=== PATIENT | male | born 1955 | race Caucasian/White ===

== ENCOUNTER 2018-08-28 06:09 | Day surgery (SDC) | payer BC ==
[2018-08-27 09:59] VITALS: BMI 30.1
[2018-08-28] MEDS ORDERED: Sodium Chloride 0.9% 10 ML ONE (06:26)
[2018-08-28] MEDS ORDERED: Thrombin 5000 UNITS/5 ML VIAL ONE (06:26)
[2018-08-28] MEDS ORDERED: CEFAZOLIN 2 GM/50 ML BAG ONE (06:31)
[2018-08-28] MEDS ORDERED: Fentanyl 250 MCG/5 ML VIAL ONE (06:39)
--- NOTE | 2018-08-28 08:53 | OP ---
DATE OF PROCEDURE: 08/28/2018 LICENSING SPECIALIST: Dimas Maher PA-C PROCEDURES PERFORMED: Anterior cervical diskectomy, C5-C6 and C6-C7, interbody arthrodesis, intervertebral biomechanical device, local morselized autograft, demineralized bone matrix, anterior titanium instrumentation, C5-C6 and C6-C7. DESCRIPTION OF PROCEDURE: The patient was brought to the operating room and intubated. He was positioned supine with the head in modest extension on a gel-filled donut. An incision was made in the right precervical region and dissected medial to the sternocleidomastoid muscle, identified the anterior cervical spinal, and the level was confirmed by x-ray. We debrided the anterior osteophytes, placed distraction across the disk spaces and using the operative microscope and microdissection techniques, completely removed the intervertebral disks at C5-C6 and C6-C7 down to the level of the dura with particular attention to the left. The bony endplates were then decorticated for the purpose of arthrodesis and appropriate-sized intervertebral biomechanical PEEK device was brought into the field and filled with demineralized bone matrix and local morselized autograft, and tapped in place securely at C5-C6 and C6-C7. Next, an anterior plate was brought into the field and secured to C5, C6, and C7 using two 14-mm screws at each level. The wound was then extensively irrigated and maximum hemostasis was secured and the wound was closed in anatomic layers. Job ID: [id number]
[2018-08-28] MEDS ORDERED: Fentanyl 100 MCG/2 ML VIAL ONE (09:12)
[2018-08-28] MEDS ORDERED: Glycopyrrolate 0.2 MG/ML 5 ML SYRINGE ONE (16:26)
[2018-08-28] MEDS ORDERED: Ondansetron PF 4 MG/2 ML Vial ONE (16:26)
[2018-08-28] MEDS ORDERED: PROPOFOL 200 MG/20 ML VIAL ONE (16:26)
[2018-08-28] MEDS ORDERED: Dexamethasone 20 MG/5 ML VIAL ONE (16:26)
[2018-08-28] MEDS ORDERED: PHENYLEPHRINE-NS 100 MCG/ML 10 ML SYRINGE ONE (16:26)
[2018-08-28] MEDS ORDERED: Hydrocortisone Sod Succ/PF 100 mg/2 ml Vial ONE (16:26)
[2018-08-28] MEDS ORDERED: Rocuronium Bromide 10 MG/ML (10ML VIAL) ONE (16:26)
== END 2018-08-28 13:10 | disposition home or self-care (01) ==
LOC: SDC 06:09
PROVIDERS: ATTEND Neurological Surgery
PROC: 0RT30ZZ Resection of Cervical Vertebral Disc, Open Approach (ICD-10-PCS; principal; 2018-08-28)
PROC: 0RG20K0 Fusion of 2 or more Cervical Vertebral Joints with Nonautologous Tissue Substitute, Anterior Approach, Anterior Column, Open Approach (ICD-10-PCS; principal; 2018-08-28)
PROC: 0RG20A0 Fusion of 2 or more Cervical Vertebral Joints with Interbody Fusion Device, Anterior Approach, Anterior Column, Open Approach (ICD-10-PCS; principal; 2018-08-28)
PROC: 0RG2070 Fusion of 2 or more Cervical Vertebral Joints with Autologous Tissue Substitute, Anterior Approach, Anterior Column, Open Approach (ICD-10-PCS; principal; 2018-08-28)
DX: M50.122 Cervical disc disorder at C5-C6 level with radiculopathy (principal); M48.02 Spinal stenosis, cervical region; M25.78 Osteophyte, vertebrae; Z79.1 Long term (current) use of non-steroidal anti-inflammatories (NSAID); Z79.82 Long term (current) use of aspirin; Z79.899 Other long term (current) drug therapy; Z88.2 Allergy status to sulfonamides; Z96.652 Presence of left artificial knee joint
CPT/HCPCS: 76000; C1713; C1776; J1100; J1720; J2405; J2704; J3010; J3490

== ENCOUNTER 2018-09-11 10:10 | Outpatient (CLI) | payer BC ==
--- NOTE | 2018-09-11 11:46 | RAD ---
CERVICAL SPINE THREE VIEWS: History: M54.2, neck pain, follow up surgery. Comparison: 04-21-18 FINDINGS: Anterior cervical fusion changes at C5, C6 and C7. There is some prevertebral soft tissue swelling at this level, new when compared to the prior study. No significant malalignment. Generalized cervical spondylosis. IMPRESSION: Anterior cervical fusion changes at C5, C6, and C7 with some adjacent prevertebral soft tissue swelli ng. POS: [facility]
== END 2018-09-11 10:11 | disposition home or self-care (01) ==
LOC: TBSIIMAG 10:10
PROVIDERS: ATTEND Neurological Surgery
DX: M54.2 Cervicalgia (principal); M79.89 Other specified soft tissue disorders; Z98.1 Arthrodesis status
CPT/HCPCS: 72040

== ENCOUNTER 2018-11-13 12:47 | Outpatient (CLI) | payer BC ==
--- NOTE | 2018-11-13 13:05 | RAD ---
Cervical spine 2 views 11/13/2018 COMPARISON: 09/11/2018 HISTORY: Cervical radiculopathy FINDINGS: Anterior discectomy and fusion hardware present at C5-6/C6-7. Mild prevertebral soft tissue swelling seen in this region, improved when compared to the prior exam. No significant anterolisthesis or retrolisthesis. No evidence for hardware failure. Multilevel mid cervical spine fa cet and uncovertebral osteophyte formation noted, left greater than right. IMPRESSION: Postoperative and degenerative changes as detailed above. No acute findings are seen.
== END 2018-11-13 12:48 | disposition home or self-care (01) ==
LOC: TBSIIMAG 12:47
PROVIDERS: ATTEND Neurological Surgery
DX: M47.22 Other spondylosis with radiculopathy, cervical region (principal); Z98.1 Arthrodesis status
CPT/HCPCS: 72040

== ENCOUNTER 2019-04-09 09:10 | Outpatient (CLI) | payer MEDICARE, BC ==
[2019-04-09 10:47] LABS: Bacteria/HPF None Seen HPF (None Seen); Bilirubin Negative (Negative); Blood, Urine Negative (Negative); Clarity Clear (Clear); Glucose, Urine (Dipstick) Normal (Negative); Leukocyte Negative Leu/uL (Negative); Nitrite Negative (Negative); Protein, Urine (Dipstick) Negative (Neg-Trace); RBC/HPF 0-3 HPF (0-3); Squamous Epithelial None Seen HPF (0-3); Urobilinogen Normal mg/dL (Less than 2); WBC/HPF 0-3 HPF (0-3)
[2019-04-09 10:48] LABS: PTT 28.9 SEC (22.9-36.1); Prothrombin Time 12.7 SEC (12.0-14.7)
[2019-04-09 10:54] LABS: Hemoglobin 15.3 g/dL (14.0-18.0); Mean Corpuscular HGB CONC 34.4 g/dL (32.0-36.0); Mean Corpuscular Hemoglobin 30.5 pg (27.0-31.0); Mean Corpuscular Volume 88.7 fL (78.0-98.0); Mean Platelet Volume 8.4 fL (7.4-10.4); Platelet Count 225 thou/uL (130-400); RBC Distribution Width 12.3 % (11.5-14.5); White Blood Cell (WBC) Count 7.4 thou/uL (4.8-10.8)
[2019-04-09 11:08] LABS: Anion Gap 13 mmol/L (10-20); BUN (Urea Nitrogen) 14 mg/dL (8.4-25.7); Calc. Creatinine Clearance 0 mL/min (70-130); Calcium 9.7 mg/dL (7.8-10.44); Carbon Dioxide 29 mmol/L (23-31); Chloride 101 mmol/L (98-107); Estimated GFR-MDRD 73; Glucose 104 mg/dL (80-115); Potassium 4.9 mmol/L (3.5-5.1); Sodium 138 mmol/L (136-145)
--- NOTE | 2019-04-10 11:03 | EKG ---
Test Reason : Blood Pressure : / mmHG Vent. Rate : 064 BPM Atrial Rate : 064 BPM P-R Int : 198 ms QRS Dur : 100 ms QT Int : 406 ms P-R-T Axes : 050 086 043 degrees QTc Int : 418 ms Normal sinus rhythm Normal ECG Confirmed by KIRTI WHITTAKER ([id number]) on 04/10/2019 11:02:37 AM Referred By: MARYANN Confirmed By:KIRTI WHITTAKER
== END 2019-04-09 09:11 | disposition home or self-care (01) ==
LOC: LABBT 09:10
PROVIDERS: ATTEND Urology
DX: Z01.818 Encounter for other preprocedural examination (principal); R33.9 Retention of urine, unspecified; N40.0 Benign prostatic hyperplasia without lower urinary tract symptoms
CPT/HCPCS: 80048; 81001; 85027; 85610; 85730; 87086; 93005; 93010

== ENCOUNTER 2019-04-22 07:30 | Day surgery (SDC) | payer MEDICARE, BC ==
[2019-04-09 09:34] VITALS: BMI 29.8
[2019-04-22] MEDS ORDERED: Levofloxacin 500 mg/D5W 100 ml Premix Bag ONE (08:12)
[2019-04-22] MEDS ORDERED: Propofol 500 MG/50 ML VIAL ONE (09:49)
[2019-04-22] MEDS ORDERED: Fentanyl 100 MCG/2 ML VIAL ONE ×2 (09:49)
[2019-04-22] MEDS ORDERED: Midazolam HCl 2 mg/2 ml Vial ONE ×2 (09:49)
[2019-04-22] MEDS ORDERED: Phenazopyridine HCl 97.5 MG TABLET ONE ×2 (11:15→11:18)
--- NOTE | 2019-04-22 11:57 | OP ---
DATE OF PROCEDURE: 04/22/2019 PRIMARY CARE PHYSICIAN: Dr. Apple Apodaca. PREOPERATIVE DIAGNOSES: 1. A 64-year-old male with history of benign prostatic hypertrophy. 2. 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 POSTOPERATIVE DIAGNOSES: 1. A 64-year-old male with history of benign prostatic hypertrophy. 2. 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 PROCEDURES PERFORMED: 1. Cystoscopy. 2. Meatal calibration and dilatation. 3. Dilation of urethral stricture. 4. UroLift implant x6. ANESTHESIA: TIVA. COMPLICATIONS: None apparent. DISPOSITION: To recovery room in stable condition. INDICATIONS FOR PROCEDURE AND HISTORY: Mr. Rosas is a pleasant 64-year-old male with history of BPH, history of elevated PSA, biopsy negative for malignancy. He is on dual medical therapy and desires to proceed with surgical intervention for BPH. The patient prefers UroLift due to minimally invasive approach. Risks and complications of the procedure were reviewed with him in detail including, but not limited to, bleeding, pain, infection, incontinence, UTI, generalized pelvic pain, injury to adjacent organs, possible exposure, migration of implant resulting in incrustation, urolithiasis warranting treatment. All questions were answered to his satisfaction and desired to proceed. DESCRIPTION OF PROCEDURE: After an informed consent was signed, the patient taken to the operating room and placed in a dorsal lithotomy position with the genital area prepped and draped in the usual surgical sterile fashion. A 21-Citizen [place] cystoscope was utilized for cystoscopy. There was some resistance at the meatus , fossa. Therefore, we gently calibrated the urethral meatus to 16/18-Citizen [place], dilated to 24-[place]izen [place] with ease, and subsequently, the scope was able to be passed without significant issues. The urethra was staged again, demonstrating multiple early proximal penile bulbar stricture, wide caliber, not warranting treatment and scope was easily maneuvered proximal to this. At the level of bulbar urethra, there was a stricture about 16-[place]izen [place] caliber. With the passage of scope, this resolved. The prostatic urethra was staged, demonstrating [id number] hyperplasia of the prostate, obstructing. Bladder was entered. The UOs were about 4 mm proximal to the bladder neck and had trabeculation consistent with chronic outlet obstruction. At this time, we transitioned to a 0-degree 20-[place]izen [place] UroLift scope and re- staged the urethra. Total of 6 implants were placed. The first implant was treated on the left side 1.5 cm distal to the bladder neck. Most of his obstructing component was lateral, his anterior channel was not obviously obstructing. We did sequentially place 6 implants of his lateral lobes, opening up a nice anterior channel. There was apical hyperplasia; however, this was nonobstructing as we created a nice open channel to the bladder anteriorly. Minimal oozing and bleeding was noted. I was able to subsequently pass a 16-Citizen [place] in and out catheter with ease. As his meatal calibration was done atraumatically, I did not leave an indwelling urethral Hathaway catheter in. We will watch the patient postoperatively for a voiding trial. If no significant retention or hematuria of concern, we will discharge the patient without an indwelling Hathaway catheter. He will follow up with me in about 4 weeks on for peak flow PVR. He is discharged on ciprofloxacin for course of 5 days, Azo p.r.n. for dysuria. The patient is to stop all aspirin and ibuprofen products at least for 10 days, and is advised to continue his Flomax and Avodart until followup appointment with me next month. Job ID: [id number] [facility]
== END 2019-04-22 13:35 | disposition home or self-care (01) ==
LOC: SDC 07:30
PROVIDERS: ATTEND Urology
PROC: 0T7D8DZ Dilation of Urethra with Intraluminal Device, Via Natural or Artificial Opening Endoscopic (ICD-10-PCS; principal; 2019-04-22)
DX: N40.1 Benign prostatic hyperplasia with lower urinary tract symptoms (principal); R35.0 Frequency of micturition; R39.14 Feeling of incomplete bladder emptying; N35.912 Unspecified bulbous urethral stricture, male; I10 Essential (primary) hypertension; E78.5 Hyperlipidemia, unspecified; M06.9 Rheumatoid arthritis, unspecified; N52.9 Male erectile dysfunction, unspecified; Z79.82 Long term (current) use of aspirin; Z79.899 Other long term (current) drug therapy; Z88.2 Allergy status to sulfonamides
CPT/HCPCS: C1889; C9740; J1956; J2250; J2704; J3010

== ENCOUNTER 2022-09-28 09:15 | Inpatient (IN) | payer MEDICARE, BC ==
[2022-09-28 10:22] LABS: Hemoglobin 14.4 g/dL (13.5-17.5); Mean Corpuscular HGB CONC 33.6 g/dL (32.0-36.0); Mean Corpuscular Volume 86.5 fl (81.2-95.1); Mean Platelet Volume 10.9 fl (7.4-10.4); Platelet Count 267 10x3/uL (150-450); RBC Distribution Width 13.1 % (11.5-14.5); Red Blood Cell (RBC) Count 4.96 10x6/uL (4.32-5.72); White Blood Cell (WBC) Count 9.2 10x3/uL (3.5-10.5)
[2022-09-28 10:50] LABS: Anion Gap 14 mmol/L (10-20); BUN (Urea Nitrogen) 30 mg/dL (8.4-25.7); Calc. Creatinine Clearance 0 mL/min (70-130); Calcium 9.4 mg/dL (7.8-10.44); Carbon Dioxide 27 mmol/L (23-31); Chloride 104 mmol/L (98-107); Estimated GFR 64; Glucose 86 mg/dL (80-115); Sodium 141 mmol/L (136-145)
[2022-10-01] MEDS ORDERED: Albumin 5% 500 ML ONE (06:21)
[2022-10-01] MEDS ORDERED: Lidocaine 1% MPF 2 ML VIAL ONE (06:30)
[2022-10-01] MEDS ORDERED: Midazolam HCl 5 mg/5 ml Vial ONE (06:44)
[2022-10-01] MEDS ORDERED: Fentanyl 250 MCG/5 ML VIAL ONE (06:44)
[2022-10-01] MEDS ORDERED: Dexmedetomidine 200 MCG/2 ML VIAL ONE (06:50)
[2022-10-01] MEDS ORDERED: Sodium Chloride 0.9% 100 ML ONE (07:14)
[2022-10-01] MEDS ORDERED: CEFAZOLIN 2 GM VIAL ONE (07:14)
[2022-10-01] MEDS ORDERED: Heparin 10,000 UNITS/1 ML VIAL 30,000 UNITS in Sodium Chloride 0.9% 1,000 ML FS SCH (07:15)
[2022-10-01 07:51] LABS: SARS-CoV-2 NAA Rapid Test Not Detected (NotDetected)
[2022-10-01] MEDS ORDERED: Dexamethasone 20 MG/5 ML VIAL ONE (07:56)
[2022-10-01] MEDS ORDERED: Papaverine 60 MG/2 ML VIAL ONE (07:56)
[2022-10-01] MEDS ORDERED: Sodium Bicarb 50 MEQ/50 ML Abboject 8.4% SYRINGE ONE (07:56)
[2022-10-01] MEDS ORDERED: Protamine Sulfate 50 MG/5 ML VIAL ONE (07:56)
[2022-10-01] MEDS ORDERED: Glycopyrrolate 0.2 MG/ML 5 ML SYRINGE ONE (07:56)
[2022-10-01] MEDS ORDERED: Heparin 30,000 units/30 ml VIAL ONE (07:56)
[2022-10-01] MEDS ORDERED: Aminocaproic Acid 5 GM/20 ML VIAL ONE (07:56)
[2022-10-01] MEDS ORDERED: Potassium Chloride 60 MEQ/30 ML VIAL ONE (07:56)
[2022-10-01] MEDS ORDERED: Calcium Chloride 1 GM/10 ML Abboject SYRINGE ONE (07:56)
[2022-10-01] MEDS ORDERED: Vecuronium 10 MG VIAL ONE (07:56)
[2022-10-01] MEDS ORDERED: Lidocaine 1% PF 5 ML VIAL ONE (07:56)
[2022-10-01] MEDS ORDERED: PROPOFOL 200 MG/20 ML VIAL ONE (07:56)
[2022-10-01] MEDS ORDERED: Norepinephrine 4 MG/4 ML VIAL ONE (07:56)
[2022-10-01] MEDS ORDERED: Ondansetron PF 4 MG/2 ML Vial ONE (07:56)
[2022-10-01] MEDS ORDERED: Thrombin 5000 UNITS/5 ML VIAL ONE (07:56)
[2022-10-01] MEDS ORDERED: Mannitol 12.5 GM/50 ML ONE (07:56)
[2022-10-01] MEDS ORDERED: NEOSTIGMINE 3 MG/3 ML SYR 3 MG/3 ML SYRINGE ONE (07:56)
[2022-10-01] MEDS ORDERED: Lidocaine 2% PF 100 mg/5 ml Syringe ONE (07:56)
[2022-10-01] MEDS ORDERED: Magnesium 5 GM/10 ML VIAL ONE (07:56)
[2022-10-01] MEDS ORDERED: Heparin 5,000 UNITS/ML VIAL ONE (07:56)
[2022-10-01] MEDS ORDERED: Vancomycin 1 GM VIAL ONE (07:56)
[2022-10-01] MEDS ORDERED: Potassium Chloride 20 MEQ/100 ML PREMIX BAG IVPB PRN (11:01)
[2022-10-01] MEDS ORDERED: Mag-Al 1200 mg/1200 mg/30 ML UDCUP PO PRN (11:01)
[2022-10-01] MEDS ORDERED: Bisacodyl 10 MG SUPP PR PRN (11:01)
[2022-10-01] MEDS ORDERED: Ondansetron PF 4 MG/2 ML Vial IVP PRN (11:01)
[2022-10-01] MEDS ORDERED: NOREPINEPHRINE 8 MG/250 ML-D5W 250 ML IVPB PRN (11:01)
[2022-10-01] MEDS ORDERED: niCARdipine 25 MG in Sodium Chloride 0.9% 250 ML 250 ML IVPB PRN (11:01)
[2022-10-01] MEDS ORDERED: Hetastarch 6% 500 ML 500 ML IVPB PRN (11:01)
[2022-10-01] MEDS ORDERED: Ipratropium/Albuterol 3 ML NEB NEB PRN (11:01)
[2022-10-01] MEDS ORDERED: Acetaminophen 325 MG TAB PO PRN (11:01)
[2022-10-01] MEDS ORDERED: hydrALAZINE 20 MG/ML VIAL SLOW IVP PRN (11:01)
[2022-10-01] MEDS ORDERED: Morphine 2 MG/ML VIAL SLOW IVP PRN (11:01)
[2022-10-01 11:18] LABS: #Eosinphils 0.2 thou/uL (0.0-0.7); #Lymphocytes 1.9 thou/uL (1.20-3.40); #Monocytes 0.7 thou/uL (0.11-0.59); #Neutrophils 16.3 thou/uL (1.40-6.50); %Basophils 0.2 % (0.0-1.0); %Eosinophils 1.2 % (0.0-10.0); %Lymphocytes 9.9 % (21.0-51.0); %Monocytes 3.5 % (0.0-10.0); %Neutrophils 85.3 % (42.0-75.0); Hemoglobin 13.2 g/dL (14.0-18.0); Mean Corpuscular HGB CONC 32.8 g/dL (32.0-36.0); Mean Corpuscular Hemoglobin 30.2 pg (27.0-31.0); Mean Corpuscular Volume 92.1 fl (78.0-98.0); Mean Platelet Volume 8.3 fL (7.4-10.4); Platelet Count 178 10x3/uL (130-400); RBC Distribution Width 11.9 % (11.5-14.5); Red Blood Cell (RBC) Count 4.35 mill/uL (4.70-6.10); White Blood Cell (WBC) Count 19.1 10x3/uL (4.8-10.8)
[2022-10-01 11:29] LABS: Anion Gap 9 mmol/L (10-20); BUN (Urea Nitrogen) 27 mg/dL (8.4-25.7); Calc. Creatinine Clearance 106 mL/min (70-130); Carbon Dioxide 23 mmol/L (23-31); Chloride 110 mmol/L (98-107); Estimated GFR 80; Glucose 143 mg/dL (80-115); Potassium 4.4 mmol/L (3.5-5.1); Sodium 138 mmol/L (136-145)
[2022-10-01] MEDS: Lactated Ringer's 1,000 ML IV SCH (11:49)
[2022-10-01 12:07] LABS: INR-International Normal Ratio 1.2; Prothrombin Time 15.2 sec (12.0-14.7)
[2022-10-01] MEDS: HYDROcodone/Acetaminophen 5/325 mg Tablet PO PRN ×2 (12:25→18:33)
[2022-10-01] MEDS: CEFAZOLIN 2 GM in Sodium Chloride 0.9% 100 ML IVPB SCH ×2 (15:16→22:50)
[2022-10-01] MEDS: Fentanyl 100 MCG/2 ML VIAL SLOW IVP PRN ×3 (15:16→21:26)
[2022-10-01 16:44] LABS: Hemoglobin 13.2 g/dL (14.0-18.0)
[2022-10-01 16:56] LABS: Potassium 4.4 mmol/L (3.5-5.1)
[2022-10-01] MEDS ORDERED: Famotidine/PF 20 mg/2ml Vial SLOW IVP SCH (21:00)
[2022-10-01] MEDS: Atorvastatin Calcium 20 MG TAB PO SCH (21:09)
[2022-10-01] MEDS: Gabapentin 300 MG CAP PO SCH (21:09)
[2022-10-02] MEDS: HYDROcodone/Acetaminophen 5/325 mg Tablet PO PRN ×2 (00:47→17:12)
[2022-10-02 04:54] LABS: Mean Corpuscular Hemoglobin 30.2 pg (27.0-31.0); Mean Corpuscular Volume 91.3 fl (78.0-98.0); Mean Platelet Volume 8.6 fL (7.4-10.4); Platelet Count 217 10x3/uL (130-400); RBC Distribution Width 12.2 % (11.5-14.5); Red Blood Cell (RBC) Count 4.31 mill/uL (4.70-6.10); White Blood Cell (WBC) Count 22.1 10x3/uL (4.8-10.8)
[2022-10-02 05:17] LABS: Anion Gap 13 mmol/L (10-20); BUN (Urea Nitrogen) 24 mg/dL (8.4-25.7); Calc. Creatinine Clearance 127 mL/min (70-130); Calcium 8.7 mg/dL (7.8-10.44); Carbon Dioxide 22 mmol/L (23-31); Chloride 106 mmol/L (98-107); Estimated GFR 95; Glucose 145 mg/dL (80-115); Potassium 4.3 mmol/L (3.5-5.1); Sodium 137 mmol/L (136-145)
[2022-10-02 05:28] LABS: Band 10 % (5-11); Lymphocytes 7 % (21-51); MDiff Complete? YES; Monocytes 4 % (0-10); Neutrophil 79 % (42-75)
[2022-10-02] MEDS: CEFAZOLIN 2 GM in Sodium Chloride 0.9% 100 ML IVPB SCH (07:06)
[2022-10-02] MEDS ORDERED: Nitroglycerin 0.4 MG TAB (25 Tab Bottle) SL PRN (08:22)
[2022-10-02] MEDS ORDERED: Zolpidem Tartrate 5 MG TAB PO PRN (08:22)
[2022-10-02] MEDS: Lactated Ringer's 1,000 ML IV SCH (08:24)
[2022-10-02] MEDS: Magnesium 2 GM/50 ML(in water) 2 GM in Premix Bag 1 BAG IVPB SCH (09:07)
[2022-10-02] MEDS: Furosemide 40 MG TAB PO SCH (09:08)
[2022-10-02] MEDS: Polyethylene Glycol 3350 17 GM Packet PO SCH (09:08)
[2022-10-02] MEDS: Famotidine 20 MG TAB PO SCH ×2 (09:08→20:46)
[2022-10-02] MEDS: Metoprolol Tartrate 25 MG TAB PO SCH ×2 (09:08→20:45)
[2022-10-02] MEDS: Gabapentin 300 MG CAP PO SCH ×2 (09:08→20:45)
[2022-10-02] MEDS: Aspirin 325 MG TAB PO SCH (09:09)
[2022-10-02] MEDS: Fentanyl 100 MCG/2 ML VIAL SLOW IVP PRN (15:58)
[2022-10-02 17:06] VITALS: BMI 5116.2
[2022-10-02] MEDS: Atorvastatin Calcium 20 MG TAB PO SCH (20:45)
[2022-10-02] MEDS ORDERED: Atorvastatin Calcium 20 MG TAB PO SCH (21:00)
[2022-10-03] MEDS: HYDROcodone/Acetaminophen 5/325 mg Tablet PO PRN ×5 (03:03→22:30)
[2022-10-03] MEDS ORDERED: Nebivolol HCl 2.5 MG TAB PO SCH (09:00)
[2022-10-03] MEDS ORDERED: Nebivolol HCl 5 MG TAB PO SCH (09:00)
[2022-10-03] MEDS: Polyethylene Glycol 3350 17 GM Packet PO SCH (09:26)
[2022-10-03] MEDS: Aspirin 325 MG TAB PO SCH (09:26)
[2022-10-03] MEDS: Famotidine 20 MG TAB PO SCH ×2 (09:26→19:56)
[2022-10-03] MEDS: Potassium Chloride 10 MEQ TAB PO SCH (09:27)
[2022-10-03] MEDS: Furosemide 40 MG TAB PO SCH (09:28)
[2022-10-03] MEDS: Gabapentin 300 MG CAP PO SCH ×2 (09:34→19:56)
[2022-10-03] MEDS: Magnesium 2 GM/50 ML(in water) 2 GM in Premix Bag 1 BAG IVPB SCH ×2 (09:41→09:49)
[2022-10-03] MEDS: Guaifenesin DM 100-10/5 ML UDCUP PO PRN (11:58)
[2022-10-03] MEDS: Atorvastatin Calcium 20 MG TAB PO SCH (19:56)
[2022-10-04] MEDS: HYDROcodone/Acetaminophen 5/325 mg Tablet PO PRN ×5 (01:57→20:39)
[2022-10-04] MEDS: Aspirin 325 MG TAB PO SCH (09:21)
[2022-10-04] MEDS: Furosemide 40 MG TAB PO SCH (09:21)
[2022-10-04] MEDS: Gabapentin 300 MG CAP PO SCH ×2 (09:22→20:36)
[2022-10-04] MEDS: Famotidine 20 MG TAB PO SCH ×2 (09:22→20:36)
[2022-10-04] MEDS: Potassium Chloride 10 MEQ TAB PO SCH (09:23)
[2022-10-04] MEDS: Polyethylene Glycol 3350 17 GM Packet PO SCH (09:23)
[2022-10-04] MEDS: Bisacodyl 5 MG TAB PO PRN ×2 (09:30→20:37)
[2022-10-04] MEDS: Benzonatate 100 MG CAP PO SCH ×3 (09:31→20:36)
[2022-10-04] MEDS: Nebivolol HCl 5 MG TAB PO SCH (09:32)
[2022-10-04] MEDS ORDERED: Furosemide 20 MG/2 ML VIAL SLOW IVP SCH (15:15)
[2022-10-04] MEDS: Atorvastatin Calcium 20 MG TAB PO SCH (20:36)
[2022-10-05] MEDS: HYDROcodone/Acetaminophen 5/325 mg Tablet PO PRN ×2 (05:19→09:34)
[2022-10-05] MEDS: Guaifenesin DM 100-10/5 ML UDCUP PO PRN (05:24)
[2022-10-05] MEDS: Nebivolol HCl 5 MG TAB PO SCH (09:25)
[2022-10-05] MEDS: Furosemide 40 MG TAB PO SCH (09:26)
[2022-10-05] MEDS: Gabapentin 300 MG CAP PO SCH (09:26)
[2022-10-05] MEDS: Aspirin 325 MG TAB PO SCH (09:27)
[2022-10-05] MEDS: Famotidine 20 MG TAB PO SCH (09:27)
[2022-10-05] MEDS: Benzonatate 100 MG CAP PO SCH (09:27)
[2022-10-05] MEDS: Potassium Chloride 10 MEQ TAB PO SCH (09:27)
[2022-10-05] MEDS: Polyethylene Glycol 3350 17 GM Packet PO SCH (09:30)
[2022-10-05 12:15] VITALS: BP 125/72; TEMP 97.6
[2022-10-09 14:06] LABS: Actual Bicarbonate (HCO3a) 23.6 mEq/L (22-28); Analyzer IN Cardio OR; Base Excess (BEa) -2.7 mEq/L (-2.0 to +3.0); CO2 Tension 46.7 mmHg (35.0-45.0); Calcium, Ionized (arterial) 1.17 mmol/L (1.12-1.30); Carboxyhemoglobin (COHb) 0.6 gm% (0.0-3.0); Hemoglobin (Hb) 13.7 g/dL (14.0-18.0); O2 Tension (PaO2), arterial 325.7 mmHg (> 80.0); Potassium - ABG Lab 3.88 mmol/L (3.70-5.30); pH, Arterial 7.32 (7.35-7.45)
[2022-10-09 14:06] LABS: Actual Bicarbonate (HCO3a) 24.1 mEq/L (22-28); Base Excess (BEa) -1.3 mEq/L (-2.0 to +3.0); CO2 Tension 43.4 mmHg (35.0-45.0); O2 Tension (PaO2), arterial 282.3 mmHg (> 80.0); pH, Arterial 7.36 (7.35-7.45)
[2022-10-09 14:07] LABS: Analyzer IN Cardio OR; Calcium, Ionized (arterial) 1.14 mmol/L (1.12-1.30); Carboxyhemoglobin (COHb) 0.5 gm% (0.0-3.0); Hemoglobin (Hb) 13.4 g/dL (14.0-18.0); Potassium - ABG Lab 4.22 mmol/L (3.70-5.30)
[2022-10-09 14:07] LABS: Actual Bicarbonate (HCO3v) 26 mEq/L (22-28); Analyzer IN Cardio OR; Base Excess 0.4 mEq/L (-2.0 to +3.0); Calcium, Ionized (venous) 1.06 mmol/L (1.16-1.32); Chloride (VBG) 104 mmol/L (98-106); Potassium (VBG) 4.84 mmol/L (3.70-5.30); Sodium 135.1 mmol/L (133-146); pH (venous) 7.37 (7.32-7.43)
[2022-10-09 14:07] LABS: Actual Bicarbonate (HCO3a) 24.8 mEq/L (22-28); Analyzer IN Cardio OR; Base Excess (BEa) 0.5 mEq/L (-2.0 to +3.0); CO2 Tension 38.6 mmHg (35.0-45.0); Calcium, Ionized (arterial) 1.03 mmol/L (1.12-1.30); O2 Tension (PaO2), arterial 393.8 mmHg (> 80.0); Potassium - ABG Lab 4.78 mmol/L (3.70-5.30); pH, Arterial 7.43 (7.35-7.45)
[2022-10-09 14:08] LABS: Actual Bicarbonate (HCO3a) 22.4 mEq/L (22-28); Analyzer IN Cardio OR; Base Excess (BEa) -1.5 mEq/L (-2.0 to +3.0); CO2 Tension 34.3 mmHg (35.0-45.0); Calcium, Ionized (arterial) 1.19 mmol/L (1.12-1.30); Carboxyhemoglobin (COHb) 0.3 gm% (0.0-3.0); Hemoglobin (Hb) 10.6 g/dL (14.0-18.0); O2 Tension (PaO2), arterial 322.4 mmHg (> 80.0); Potassium - ABG Lab 4.59 mmol/L (3.70-5.30); pH, Arterial 7.43 (7.35-7.45)
[2022-10-09 14:09] LABS: Actual Bicarbonate (HCO3a) 23.5 mEq/L (22-28); Analyzer IN Cardio OR; Base Excess (BEa) -3.9 mEq/L (-2.0 to +3.0); CO2 Tension 53.1 mmHg (35.0-45.0); Calcium, Ionized (arterial) 1.18 mmol/L (1.12-1.30); Carboxyhemoglobin (COHb) 0.4 gm% (0.0-3.0); Hemoglobin (Hb) 12.5 g/dL (14.0-18.0); O2 Tension (PaO2), arterial 159.3 mmHg (> 80.0); Potassium - ABG Lab 4.63 mmol/L (3.70-5.30); pH, Arterial 7.26 (7.35-7.45)
[2022-10-09 14:10] LABS: Puncture Site Arterial Line
[2022-10-09 14:10] LABS: Puncture Site Arterial Line
[2022-10-09 14:11] LABS: Puncture Site Arterial Line
[2022-10-09 14:11] LABS: Puncture Site Arterial Line
[2022-10-09 14:12] LABS: Puncture Site Arterial Line
== END 2022-10-05 13:00 | disposition home or self-care (01) | DRG 236 ==
LOC: SURG A 10-01 05:55 → CCU 10-01 09:44 → 2NO 10-02 14:49
PROVIDERS: ADMIT Thoracic Surgery (Cardiothoracic Vascular Surgery); ATTEND Thoracic Surgery (Cardiothoracic Vascular Surgery)
PROC: 02100Z9 Bypass Coronary Artery, One Artery from Left Internal Mammary, Open Approach (ICD-10-PCS; principal; 2022-10-01)
PROC: 021009W Bypass Coronary Artery, One Artery from Aorta with Autologous Venous Tissue, Open Approach (ICD-10-PCS; 2022-10-01)
PROC: 06BQ0ZZ Excision of Left Saphenous Vein, Open Approach (ICD-10-PCS; 2022-10-01)
PROC: 5A1221Z Performance of Cardiac Output, Continuous (ICD-10-PCS; 2022-10-01)
PROC: 02L70CK Occlusion of Left Atrial Appendage with Extraluminal Device, Open Approach (ICD-10-PCS; 2022-10-01)
PROC: 30233J1 Transfusion of Nonautologous Serum Albumin into Peripheral Vein, Percutaneous Approach (ICD-10-PCS; 2022-10-01)
PROC: 3E033XZ Introduction of Vasopressor into Peripheral Vein, Percutaneous Approach (ICD-10-PCS; 2022-10-01)
DX: I25.10 Atherosclerotic heart disease of native coronary artery without angina pectoris (principal); I10 Essential (primary) hypertension; E78.00 Pure hypercholesterolemia, unspecified; M06.9 Rheumatoid arthritis, unspecified; Z96.652 Presence of left artificial knee joint; F17.210 Nicotine dependence, cigarettes, uncomplicated; N40.0 Benign prostatic hyperplasia without lower urinary tract symptoms; Z20.822 Contact with and (suspected) exposure to COVID-19; Z79.82 Long term (current) use of aspirin; Z98.890 Other specified postprocedural states; Z79.899 Other long term (current) drug therapy; Z88.2 Allergy status to sulfonamides; Z82.49 Family history of ischemic heart disease and other diseases of the circulatory system
CPT/HCPCS: 36416; 36430; 71045; 71046; 80048; 82805; 85025; 85027; 85610; 85730; 86850; 86900; 86901; 93005; 93010; 93798; C1751; C1776; J0360; J1100; J1642; J1644; J1940; J2001; J2150; J2250; J2405; J2440; J2704; J2720; J3010; J3370; J3475; J3480; J3490; J7120; P9045; S0017; S0028; U0002

== ENCOUNTER 2022-11-08 12:22 | Outpatient (CLI) | payer MEDICARE, BC | END 2022-11-08 12:23 | disposition home or self-care (01) | LOC: RAD 12:22 | PROVIDERS: ATTEND Thoracic Surgery (Cardiothoracic Vascular Surgery) | DX: I25.10 Atherosclerotic heart disease of native coronary artery without angina pectoris (principal); J90 Pleural effusion, not elsewhere classified | CPT/HCPCS: 71046 ==

== ENCOUNTER 2022-11-16 23:15 | Emergency (ER) | payer MEDICARE, BC ==
[2022-11-17] MEDS ORDERED: cloNIDine 0.1 MG TAB ONE (00:20)
[2022-11-17 00:33] LABS: #Basophils 0.1 thou/uL (0.0-0.2); #Eosinphils 0.4 thou/uL (0.0-0.7); #Lymphocytes 2.1 thou/uL (1.20-3.40); #Monocytes 0.7 thou/uL (0.11-0.59); #Neutrophils 4.7 thou/uL (1.40-6.50); %Basophils 0.9 % (0.0-1.0); %Eosinophils 4.9 % (0.0-10.0); %Lymphocytes 26.5 % (21.0-51.0); %Monocytes 9.1 % (0.0-10.0); %Neutrophils 58.6 % (42.0-75.0); Hemoglobin 12.7 g/dL (14.0-18.0); Mean Corpuscular HGB CONC 33.6 g/dL (32.0-36.0); Mean Corpuscular Hemoglobin 29.7 pg (27.0-31.0); Mean Corpuscular Volume 88.4 fl (78.0-98.0); Mean Platelet Volume 9.6 fL (7.4-10.4); Platelet Count 188 10x3/uL (130-400); RBC Distribution Width 13.6 % (11.5-14.5); Red Blood Cell (RBC) Count 4.27 mill/uL (4.70-6.10); White Blood Cell (WBC) Count 7.9 10x3/uL (4.8-10.8)
[2022-11-17 01:04] LABS: ALT (SGPT) 16 U/L (8-55); AST (SGOT) 20 U/L (5-34); Alkaline Phosphatase 94 U/L (40-110); BUN (Urea Nitrogen) 28 mg/dL (8.4-25.7); Bilirubin, Total 0.6 mg/dL (0.2-1.2); CK (CPK) 174 U/L (30-200); Calc. Creatinine Clearance 0 mL/min (70-130); Calcium 9.5 mg/dL (7.8-10.44); Carbon Dioxide 25 mmol/L (23-31); Estimated GFR 70; Globulin 3.2 g/dL (2.4-3.5); Glucose 101 mg/dL (80-115); Protein, Total 7.2 g/dL (5.8-8.1)
[2022-11-17 03:26] LABS: Anion Gap 17 mmol/L (10-20); Chloride 105 mmol/L (98-107); Potassium 3.8 mmol/L (3.5-5.1); Sodium 139 mmol/L (136-145)
== END 2022-11-17 01:56 | disposition home or self-care (01) ==
LOC: ERS 23:15
DX: I10 Essential (primary) hypertension (principal); R51.9 Headache, unspecified; F17.220 Nicotine dependence, chewing tobacco, uncomplicated
CPT/HCPCS: 70450; 71045; 80053; 82550; 84484; 85025; 93005

== ENCOUNTER 2025-07-08 13:27 | Emergency (ER) | payer MEDICARE, BC ==
[2025-07-08 15:57] LABS: #Basophils 0.04 10x3/uL (0.0-0.2); #Eosinophils 0.34 10x3/uL (0.0-0.7); #Monocytes 0.89 10x3/uL (0.11-0.59); #Neutrophils 4.21 10x3/uL (1.40-6.50); %Basophils 0.5 % (0.0-1.0); %Eosinophils 4.2 % (0.0-10.0); %Lymphocytes 31.8 % (21.0-51.0); %Monocytes 11.1 % (0.0-10.0); %Neutrophils 52.3 % (42.0-75.0); Hematocrit 43.7 % (42.0-52.0); Hemoglobin 14.8 g/dL (14.0-18.0); Mean Corpuscular Hemoglobin 29.1 pg (27.0-31.0); Mean Corpuscular Volume 86.0 fL (78.0-98.0); Platelet Count 191 10x3/uL (130-400); Red Blood Cell (RBC) Count 5.08 mill/uL (4.70-6.10); White Blood Cell (WBC) Count 8.05 10x3/uL (4.8-10.8)
[2025-07-08 16:19] LABS: ALT (SGPT) 34 U/L (Less than 45); AST (SGOT) 38 U/L (11-34); Albumin 4.0 g/dL (3.1-4.5); Alkaline Phosphatase 58 U/L (40-110); Anion Gap 13 mmol/L (10-20); BUN (Urea Nitrogen) 31 mg/dL (8.4-25.7); Bilirubin, Total 1.7 mg/dL (0.3-1.2); Calc. Creatinine Clearance 0 mL/min (70-130); Calcium 9.1 mg/dL (7.8-10.44); Carbon Dioxide 28 mmol/L (23-31); Chloride 103 mmol/L (98-107); Globulin 2.5 g/dL (2.4-3.5); Glucose 92 mg/dL (83-110); Magnesium 2.0 mg/dL (1.6-2.6); Potassium 3.9 mmol/L (3.5-5.1); Sodium 140 mmol/L (136-145)
[2025-07-08 17:13] LABS: Bacteria/HPF None Seen HPF (None Seen); CAUTI Indications for Culture Pelvic or flank pain; Glucose, Urine (Dipstick) Normal (Negative); Leukocyte Negative Leu/uL (Negative); Protein, Urine (Dipstick) Negative (Neg-Trace); RBC/HPF None Seen HPF (0-3); Specific Gravity, Urine 1.014 (1.002-1.036); WBC/HPF None Seen HPF (0-3)
[2025-07-08 17:22] LABS: Urine Culture Reflex No No
== END 2025-07-08 18:15 | disposition home or self-care (01) ==
LOC: ERS 13:27
DX: I95.1 Orthostatic hypotension (principal); I11.0 Hypertensive heart disease with heart failure; I50.9 Heart failure, unspecified; Z79.51 Long term (current) use of inhaled steroids; F17.220 Nicotine dependence, chewing tobacco, uncomplicated; Z79.899 Other long term (current) drug therapy; Z79.82 Long term (current) use of aspirin
CPT/HCPCS: 71045; 80053; 81001; 83735; 84484; 85025; 93005